=== PATIENT | female | born 1990 | race Caucasian/White ===

== ENCOUNTER 2016-05-15 13:57 | Outpatient (RCR) | payer MEDICARE, MEDICAID ==
[2016-05-15 14:11] LABS: BASOPHILS % (AUTO) 1 % (0-2); EOSINOPHILS # (AUTO) 0.2 10^3uL; EOSINOPHILS % (AUTO) 2 % (0-4); LYMPHOCYTES # (AUTO) 3.6 X10^3; MEAN CORPUSCULAR HEMOGLOBIN 29.1 PG (26.0-34.0); MEAN CORPUSCULAR HGB CONC 32.8 g/dL (31.0-37.0); MEAN CORPUSCULAR VOLUME 89 FL (80-100); MEAN PLATELET VOLUME 10.2 FL (6.0-9.5); MONOCYTES % (AUTO) 9 % (3-11); NEUTROPHILS # (AUTO) 5.7 X10^3; NEUTROPHILS % (AUTO) 53 % (51-67); PLATELET COUNT 269 10^3uL (150-450); WHITE BLOOD COUNT 10.82 10^3uL (4.0-11.0)
[2016-05-29 12:10] LABS: BASOPHILS % (AUTO) 0 % (0-2); EOSINOPHILS # (AUTO) 0.2 10^3uL; EOSINOPHILS % (AUTO) 2 % (0-4); MEAN CORPUSCULAR HEMOGLOBIN 29.4 PG (26.0-34.0); MEAN CORPUSCULAR HGB CONC 33.3 g/dL (31.0-37.0); MEAN CORPUSCULAR VOLUME 88 FL (80-100); MEAN PLATELET VOLUME 10.4 FL (6.0-9.5); MONOCYTES # (AUTO) 1.3 X10^3; MONOCYTES % (AUTO) 12 % (3-11); NEUTROPHILS # (AUTO) 5.9 X10^3; NEUTROPHILS % (AUTO) 56 % (51-67); PLATELET COUNT 226 10^3uL (150-450)
== END 2016-08-13 | disposition home or self-care (01) ==
LOC: LAB 13:57 → EDSTATUS 14:09
PROVIDERS: ATTEND Psychiatry & Neurology Psychiatry
DX: Z51.81 Encounter for therapeutic drug level monitoring (principal); Z79.899 Other long term (current) drug therapy
CPT/HCPCS: 36415; 85025

== ENCOUNTER 2016-05-29 15:41 | Emergency (ER) | payer MEDICARE, MEDICAID ==
[~2016-05-29] VITALS: Ht 172.7 cm; Wt 157.3 kg
[~2016-05-29 15:41] MED LIST changes: -CALC-767 PO; -HYDR50CA3 PO; -PALI156D IM; -SMV10T PO
[2016-05-29 16:58] LABS: BASOPHILS % (AUTO) 0 % (0-2); EOSINOPHILS # (AUTO) 0.2 10^3uL; EOSINOPHILS % (AUTO) 2 % (0-4); MEAN CORPUSCULAR HEMOGLOBIN 28.7 PG (26.0-34.0); MEAN CORPUSCULAR HGB CONC 32.7 g/dL (31.0-37.0); MEAN CORPUSCULAR VOLUME 88 FL (80-100); MEAN PLATELET VOLUME 10.5 FL (6.0-9.5); MONOCYTES # (AUTO) 1.3 X10^3; MONOCYTES % (AUTO) 13 % (3-11); NEUTROPHILS # (AUTO) 5.5 X10^3; NEUTROPHILS % (AUTO) 54 % (51-67); PLATELET COUNT 228 10^3uL (150-450); WHITE BLOOD COUNT 10.17 10^3uL (4.0-11.0)
[2016-05-29 17:01] LABS: BILIRUBIN,URINE Negative (Negative); CLARITY,URINE Clear; COLOR,URINE Yellow; GLUCOSE, URINE (UA) Negative (Negative); LEUKOCYTE ESTERASE ,URINE Negative (Negative); PH,URINE 5.5 (5.0 - 8.0); UROBILINOGEN,URINE 0.2 mg/dL (0.2-1.0)
--- NOTE | 2016-05-29 17:04 | NUR ---
alejandro schilling [phone] - case coordinator
[2016-05-29 17:10] LABS: ALBUMIN 3.4 g/dL (3.4-5.0); ALKALINE PHOSPHATASE 98 U/L (38-126); ANION GAP 12.9 MEQ/L (3-15); BUN/CREATININE RATIO 13 (10-20); CALCULATED IONIZED CALCIUM 4.3 mg/dL (3.8-4.6); TOTAL PROTEIN 6.1 g/dL (6.4-8.5)
[2016-05-29 17:12] LABS: AMPHETAMINE SCREEN, URINE Negative (Negative); CANNABINOID SCREEN, URINE Negative (Negative); HCG,QUALITATIVE URINE Negative (Negative); METHAMPHETAMINE SCREEN URINE S NEGATIVE (NEGATIVE); OPIATE SCREEN URINE Negative (Negative); PROPOXYPHENE STAT NEGATIVE (NEGATIVE)
--- NOTE | 2016-05-29 18:10 | NUR ---
notified at 1700 that pt had made arrangements to go to [facility], staff called from there and stated she needed medical clearance and they would accept
--- NOTE | 2016-05-29 18:17 | NUR ---
pt given meal tray
--- NOTE | 2016-05-29 18:51 | NUR ---
Report given to Ruma ANDERSON
[2016-05-29 20:28] VITALS: BP 168/104
--- NOTE | 2016-05-29 21:35 | NUR ---
[facility] (Ailyn Mccall) called to say that they were on there way to worm picker [facility]cca Gibbons to go to [place]. Told her that the pt was already gone, had been transported to [place] already. She did inquire as to who had taken pt, explained that it was our EMS department that took pt, and apologized and that this RN was not aware that they had been called to transport pt.
== END 2016-05-29 20:20 ==
LOC: ED 15:44
DX: F32.9 Major depressive disorder, single episode, unspecified (principal)
CPT/HCPCS: 36415; 80053; 81003; 81025; 85025; 99283; G0478; G0480; 80307; 80320; 80329

== ENCOUNTER → 2016-05-29 | Outpatient (CLI) | payer MEDICARE, MEDICAID ==
[~2016-05-29] MED LIST: ACET325T38 PO; ALBU8CC IH; AMOX-358 PO; BENZ0.5T3 PO; BNZT1T PO; CALC-767 PO; CHLO50TA22 PO; CITA20TA12 PO; CLOZ25TA3 PO; DESM0.2T2 PO; DIPH50CA33 PO; DIPH50TA PO; DIVA250T4 PO; DIVA500T15 PO; DIVA500T7 PO; DIVALPROEX PO; DOCU-243 PO; DOCU100C23 PO; FLT11013 INH; FLUP5TAB PO; FLUT250D IH; GFCD10B GT; HYDR-3702 PO; HYDR50CA PO; HYDR50CA3 PO; HYDR50TA77 PO; IPRA3AMP11 INH; LEVO200T9 PO; LEVO500T16 PO; LINA145C PO; LIQUID TEARS; LURA120T PO; LURA60TA PO; LURA80TA PO; MIRT15TA PO; NORG1TAB15 PO; NORG1TAB31 PO; OLAN5TAB23 PO; OLAN5TAB3 PO; OLAN5TAB4 PO; OMEP20CA6 PO; PALI156D IM; POLY119P5 PO; PRED20TA PO; QUET300T2 PO; QUET400T3 PO; SMV10T PO; SULF1TAB35 PO; TERA2CAP4 PO; TRAZ-28 PO; TRAZ100T92 PO; TRINTELLIX; TRZS2T PO; VORT20TA PO; ZOLP10TA PO; [UNRECOGNIZED DRUG - CODE] PO; [UNRECOGNIZED DRUG - CODE] PO
== END ==
LOC: EMS 20:21
PROVIDERS: ATTEND Family Medicine
DX: R45.851 Suicidal ideations (principal)

== ENCOUNTER 2016-06-05 19:11 | Emergency (ER) | payer MEDICARE, MEDICAID ==
[~2016-06-05] VITALS: Ht 172.7 cm; Wt 154.0 kg
[2016-06-05 19:48] LABS: BASOPHILS % (AUTO) 0 % (0-2); EOSINOPHILS # (AUTO) 0.2 10^3uL; EOSINOPHILS % (AUTO) 2 % (0-4); LYMPHOCYTES # (AUTO) 3.5 X10^3; MEAN CORPUSCULAR HEMOGLOBIN 29.2 PG (26.0-34.0); MEAN CORPUSCULAR HGB CONC 33.8 g/dL (31.0-37.0); MEAN CORPUSCULAR VOLUME 86 FL (80-100); MEAN PLATELET VOLUME 10.6 FL (6.0-9.5); MONOCYTES # (AUTO) 1.2 X10^3; MONOCYTES % (AUTO) 13 % (3-11); NEUTROPHILS # (AUTO) 4.8 X10^3; NEUTROPHILS % (AUTO) 49 % (51-67); PLATELET COUNT 258 10^3uL (150-450); WHITE BLOOD COUNT 9.78 10^3uL (4.0-11.0)
[2016-06-05] MEDS ORDERED: DIPH50CA33 PO (19:49)
[2016-06-05] MEDS ORDERED: HYDR50CA3 PO (19:49)
[2016-06-05] MEDS ORDERED: PALI156D IM (19:49)
[2016-06-05] MEDS ORDERED: CALC-767 PO (19:49)
[2016-06-05] MEDS ORDERED: SMV10T PO (19:49)
[2016-06-05 19:59] LABS: ALBUMIN 3.6 g/dL (3.4-5.0); ALKALINE PHOSPHATASE 97 U/L (38-126); ANION GAP 13.6 MEQ/L (3-15); BUN/CREATININE RATIO 14 (10-20); TOTAL PROTEIN 6.7 g/dL (6.4-8.5)
[2016-06-05 20:06] LABS: AMPHETAMINE SCREEN, URINE Negative (Negative); CANNABINOID SCREEN, URINE Negative (Negative); METHAMPHETAMINE SCREEN URINE S NEGATIVE (NEGATIVE); OPIATE SCREEN URINE Negative (Negative); PROPOXYPHENE STAT NEGATIVE (NEGATIVE)
[2016-06-06 02:59] VITALS: BP 110/80
== END 2016-06-06 03:00 | disposition home or self-care (01) ==
LOC: ED 19:12
DX: F33.9 Major depressive disorder, recurrent, unspecified (principal); E03.9 Hypothyroidism, unspecified
CPT/HCPCS: 36415; 80053; 81025; 84439; 84443; 85025; 99284; G0478; G0480; 80307; 80320; 80329; 99283

== ENCOUNTER → 2016-08-02 | Outpatient (REF) | payer MEDICARE, MEDICAID ==
[2016-08-02 09:54] LABS: BASOPHILS % (AUTO) 0 % (0-2); EOSINOPHILS # (AUTO) 0.2 10^3uL; EOSINOPHILS % (AUTO) 3 % (0-4); LYMPHOCYTES # (AUTO) 3.3 X10^3; MEAN CORPUSCULAR HEMOGLOBIN 27.3 PG (26.0-34.0); MEAN CORPUSCULAR HGB CONC 32.6 g/dL (31.0-37.0); MEAN CORPUSCULAR VOLUME 84 FL (80-100); MEAN PLATELET VOLUME 10.3 FL (6.0-9.5); MONOCYTES # (AUTO) 0.7 X10^3; MONOCYTES % (AUTO) 7 % (3-11); NEUTROPHILS # (AUTO) 5.1 X10^3; NEUTROPHILS % (AUTO) 55 % (51-67); PLATELET COUNT 284 10^3uL (150-450); WHITE BLOOD COUNT 9.35 10^3uL (4.0-11.0)
[2016-08-02 10:28] LABS: ALBUMIN 3.8 g/dL (3.4-5.0); ANION GAP 11.9 MEQ/L (3-15); CALCULATED IONIZED CALCIUM 4.4 mg/dL (3.8-4.6); TOTAL PROTEIN 6.8 g/dL (6.4-8.5)
== END ==
LOC: LAB 09:45
PROVIDERS: ATTEND Nurse Practitioner Family
DX: I10 Essential (primary) hypertension (principal); E03.8 Other specified hypothyroidism
CPT/HCPCS: 80053; 84443; 85025

== ENCOUNTER 2016-08-07 09:03 | Outpatient (RCR) | payer MEDICARE, MEDICAID ==
[~2016-08-07 09:03] MED LIST changes: +CALC-767 PO; +HYDR50CA3 PO; +PALI156D IM; +SMV10T PO
== END 2016-10-23 17:13 | disposition home or self-care (01) ==
LOC: DT 09:03
PROVIDERS: ATTEND Family Medicine
DX: E11.9 Type 2 diabetes mellitus without complications (principal); E66.01 Morbid (severe) obesity due to excess calories; Z68.43 Body mass index [BMI] 50.0-59.9, adult